=== PATIENT | female | born 1935 | race Caucasian/White ===

== ENCOUNTER 2019-05-17 10:12 | Inpatient (IN) | payer MEDICARE, SELFPAY ==
[2019-05-17] VITALS (26 sets, daily range): BP systolic 134–175; BP diastolic 56–109; PULSE 71–118; RESP 16–30; TEMP 36.2–36.8; O2SAT 67–100; BMI 20.9
--- NOTE | ~2019-05-17 | XR_ITS ---
EXAMINATION: XR chest 1V portable DATE: 05/17/2019 11:08 INDICATION: Shortness of breath TECHNIQUE: frontal view of the chest was obtained. COMPARISON: Chest radiograph dated 07/19/[address] dated 07/23/2018 FINDINGS: Diffuse increased interstitial pattern in the bilateral mid to lower lung zones consistent with mild pulmonary edema superimposed over emphysema. Calcified nodule in the left lower lung zone consistent with old granulomatous disease. No focal airspace consolidation, pleural effusion or pneumothorax. Th e cardiomediastinal silhouette is normal. Atherosclerotic thoracic aorta. Mild thoracic dextroscolios is. Chronic mild T7 compression fracture and L1 burst fracture, the latter better appreciated on prio r CT. IMPRESSION: 1. Mild increased interstitial pattern in the bilateral mid to lower lung zones and favor pulmonary e jammie over pneumonia. 2. Emphysema. Reviewed, dictated and finalized at location A. H PACKER IMPRESSION: 1. Mild increased interstitial pattern in the bilateral mid to lower lung zones and favor pulmonary edema over pneumonia. 2. Emphysema.
--- NOTE | ~2019-05-17 | CT_ITS ---
EXAMINATION: CT brain wo con DATE: 05/17/2019 11:38 INDICATION: Altered mental status. TECHNIQUE: Computed tomography (CT) of the head was performed without intravenous contrast. Sagittal and coronal reconstructions were performed. The mA was adjusted according to patient size. Iterative reconstruction technique was employed. The dose-length product was 605.33 mGy-cm. COMPARISON: head CT dated 06/23/2018 FINDINGS: No acute intracranial hemorrhage, acute infarction or abnormal extra axial fluid collection. Old lacu lyudmila infarct versus prominent perivascular spaces at the right lentiform nucleus and left thalamus. Th ere is extensive scattered white matter hypoattenuation consistent with chronic small vessel ischemic disease. Symmetric prominence of the sulci and ventricles consistent with moderate age-appropriate d iffuse cerebral volume loss. Normal cavum septum lucidum. No mass/mass effect. Intracranial calcified cerebral atherosclerosis is noted. Changes of bilateral intraocular lens replacement. The orbits, p aranasal sinuses and mastoid air cells are normal. IMPRESSION: 1. No acute intracranial process. 2. Small old lacunar infarct versus prominent perivascular space at the right lentiform nucleus and l eft thalamus. 3. Age-related changes including moderate diffuse volume loss and extensive white matter hypoattenuat ion consistent with chronic small vessel ischemic disease. Reviewed, dictated and finalized at location A. CH AND BRACELET MAKER IMPRESSION: 1. No acute intracranial process. 2. Small old lacunar infarct versus prominent perivascular space at the right l entiform nucleus and left thalamus. 3. Age-related changes including moderate diffuse volume loss and extensive whi te matter hypoattenuation consistent with chronic small vessel ischemic disease .
--- NOTE | 2019-05-17 10:12 | ECG_ITS ---
Measurements Intervals [place] Rate: 116 P: [place]: 0 QRS: 66 QRSD: 96 T: 267 QT: 294 QTc: 409 Interpretive Statements ATRIAL FLUTTER/TACHYCARDIA WITH RAPID VENTRICULAR RESPONSE ST-T WAVE ABNORMALITY IN ANTEROLATERAL LEADS- CONSIDER ISCHEMIA BASELINE ARTIFACT- II, III, AVF, V3-V6 ABNORMAL ECG Electronically Signed On 05-17-2019 18:40:02 CIRCLE CUTTING SAW OPERATOR by Jose Benites D.O.
[2019-05-17 10:40] LABS: Basophils Absolute Auto 0.2 K/mm3 (0.0-0.1); Basophils Percent Auto 0.5 % (0.2-1.2); Eosinophils Absolute Auto 0.1 K/mm3 (0-0.3); Eosinophils Percent Auto 0.3 % (0-4.4); Hematocrit 50.2 % (37.0-47.0); Hemoglobin 15.8 g/dL (12.0-15.0); Immature Granulocyte Absolute 0.39 K/mm3 (0.00-0.031); Immature Granulocyte Percent A 1.1 % (0-0.5); Lymphocytes Absolute Auto 1.76 K/mm3 (0.9-3.2); Lymphocytes Percent Auto 5.1 % (18.3-44.2); Mean Corpuscular HGB Conc 31.5 g/dl (32-36); Mean Corpuscular Hemoglobin 29.3 pg (26-34); Mean Corpuscular Volume 93.1 fl (80-100); Monocytes Absolute Auto 1.5 K/mm3 (0.1-0.6); Monocytes Percent Auto 4.5 % (2.6-8.5); Neutrophils Absolute Auto 30.4 K/mm3 (1.3-6.7); Neutrophils Percent Auto 88.5 % (45.5-73.1); Platelet Count Result 436 k/mm3 (150-375); Red Blood Count 5.39 M/mm3 (4.2-5.4); Red Cell Distribution Width 13.7 % (11.5-14.5); White Blood Count 34.4 K/mm3 (4.5-10.0)
[2019-05-17 10:44] LABS: Add Urine Microscopic? YES; Appearance Urine Turbid (Clear); Bacteria Urine 2+ /hpf; Bilirubin Urine Negative (Negative); Blood Urine 1+ (Negative); Color Urine Yellow (Yellow); Glucose Urine UA 2+ mg/dL (Negative); Hyaline Casts Urine 15-19 /lpf; Ketones Urine Negative (Negative); Leukocyte Esterase Ur 3+ LEU/UL (Negative); Nitrate Urine Negative (Negative); Protein Urine 2+ mg/dL (Negative); Specific Grav Ur 1.016 (1.001-1.035); Urobilinogen Urine Negative mg/dL (<2.0); WBC Urine >75 /hpf
[2019-05-17 10:52] LABS: Alanine Aminotransferase 25 U/L (4-35); Albumin Level 4.6 g/dL (3.5-5.1); Alkaline Phosphatase 152 U/L (38-126); Aspartate Amino Transferase 33 U/L (14-36); Bilirubin,Total 0.6 mg/dL (0.2-1.3); Blood Urea Nitrogen 34 mg/dL (7-17); Calcium 9.5 mg/dL (8.4-10.2); Carbon Dioxide 31 mmol/L (22-30); Chloride 98 mmol/L (98-107); Estimated CRCL calculation 33 ml/min; Estimated Glomerular Filt Rate > 60; Glucose 248 mg/dL (65-105); Potassium 3.6 mmol/L (3.4-5.0); Sodium 141 mmol/L (137-145)
--- NOTE | 2019-05-17 11:11 | ED.AMS ---
HPI - Altered Mental Status General Chief Complaint: Altered Mental Status Stated Complaint: ams Time Seen by Provider: 05/17/19 11:04 Source: patient, RN notes reviewed and other (ED nurse) Mode of arrival: EMS Limitations: clinical condition History of Present Illness HPI narrative: Pt is an 83 y/o female presenting to the ED via EMS c/o unresponsive. ED nurse states the pt is a resident of [facility] where the pt became unresponsive earlier today. Per nurse, the pt had one episode of emesis prior to the unresponsive episode which has since resolved. ED nurse states the pt's baseline or PMHx is unknown. Pt reports chest pain and SOB. HPI is limited due to pt's clinical condition. Most information provided by ED nurse. Onset (ago): unknown Associated symptoms: chest pain and shortness of breath Related Data Home Medications Medication Instructions Recorded Confirmed acetaminophen 650 mg PO Q4-6H PRN 05/17/19 apixaban [Eliquis] 2.5 mg PO BID 05/17/19 calcium carbonate-vitamin D3 1 tablet PO DAILY 05/17/19 [Calcium 600 + D(3)] diltiazem HCl [DILT-XR] 240 mg PO DAILY 05/17/19 docusate sodium 100 mg PO DAILY 05/17/19 ferrous sulfate 325 mg PO BID 05/17/19 furosemide 20 mg PO DAILY 05/17/19 metoprolol tartrate 25 mg PO BID 05/17/19 polyethylene glycol 3350 17 g PO DAILY 05/17/19 potassium chloride [Klor-Con 10] 10 meq PO DAILY 05/17/19 umeclidinium-vilanterol [Anoro INHALATION 05/17/19 Ellipta] Allergies Allergy/AdvReac Type Severity Reaction Status Date / Time No Known Allergies Allergy Unverified 05/17/19 10:20 Review of Systems Review of Systems: Narrative: ROS is limited due to pt's clinical condition. All systems reviewed & are unremarkable except as noted in HPI and below Cardiovascular: Cardiovascular: Reports chest pain Respiratory: Respiratory: Reports dyspnea Neurologic: Reports other (Unresponsive (resolved)) [facility] Past Medical History Medical History A-fib Cataracts, bilateral CHF (congestive heart failure) COPD (chronic obstructive pulmonary disease) Dementia Depression Hip fracture History of osteoporosis HLD (hyperlipidemia) HTN (hypertension) Pneumonia Ulcer Surgical History Surgical History History of hip surgery Pins in rt hip Social History Social History Smoking status: Current every day smoker Alcohol intake: never Exam Const: General: acute distress (Moderate) and ill appearing Nutritional Appearance: well nourished Other: Elderly; Frail HENMT: Mouth: Yes lip normal Eyes: Conjunctivae: conjunctivae normal Resp: Effort & Inspection: normal respiratory effort Auscultation: wheezes (Scattered) Cardio: Rate: tachycardic Rhythm: abnormal rhythm irregularly irregular GI: GI Palp: No Tenderness to palpation present (GI) Back/Spine/Pelvis: Other: Full ROM Skin: General skin exam: normal color Other: Warm; Dry Neuro: General: moves all extremities Course Consultations Consultation #1: Discussed case with Hospitalist HOME CARE COORDINATOR Lauren Ortiz. Accepted the pt for admission. Date: 05/17/19 Time: 13:01 Vital Signs Vital signs: Vital Signs Temperature 36.3 C L 05/17/19 10:12 Pulse Rate 118 H 05/17/19 10:12 Respiratory Rate 28 H 05/17/19 10:12 Blood Pressure 175/94 H 05/17/19 10:12 Pulse Oximetry 67 L 05/17/19 10:12 Temperature 36.8 C 05/17/19 15:34 Pulse Rate 76 05/17/19 15:34 Respiratory Rate 16 05/17/19 15:34 Blood Pressure 167/109 H 05/17/19 15:34 Pulse Oximetry 100 05/17/19 15:34 MDM - Altered Mental Status MDM Narrative Medical decision making narrative: Will treat for pneumonia with possible aspiration and UTI. Differential Diagnosis Differential diagnosis: Likely subarachnoid hemorrhage, sepsis and other (Pneumonia, aspiration, UTI, dehydration) Medical Record
[2019-05-17] MEDS: ALBUTEROL SULFATE NEB 2.5 MG/0.5 ML INH 5 MG INHALATION ×2 (11:44→21:25)
[2019-05-17 11:50] LABS: Base Excess ABG 6.4 mEq/l (+/-2.0); Carboxyhemoglobin 0.8 % THb (0-2.0); Fractional Inspired Oxygen 100 %; HCO3 ABG 34.7 mEq/l (22.0-26.0); Methemoglobin ABG 0.4 %THb (0-1.5); Oxygen Content ABG 22.1 %vol (16.0-22.0); Oxygen Saturation ABG 99.5 % (95.0-100.0); Oxyhemoglobin 97.8 % THb (90.0-100.0); PO2 ABG 240.6 mmHg (80.0-100.0); PO2 FiO2 Ratio Arterial Blood 2.41 %; Total Hemoglobin 15.7 g/dL (12.0-18.0); pH ABG 7.343 (7.350-7.450)
[2019-05-17 11:52] LABS: Device NON-REBREATHER MASK; Modified Allen's Test Pass; PCO2 ABG 65.4 mmHg (35.0-45.0); Site Drawn LEFT RADIAL
[2019-05-17 12:17] LABS: Lactic Acid Reflex 2.3 mmol/L (0.7-2.1)
[2019-05-17] MEDS: SODIUM CHLORIDE 0.9% IV 500 ML 999 ML IV CONT (12:40)
[2019-05-17 15:02] LABS: Reflex Lactic Acid Yes or No Add Lactic
[2019-05-17 15:43] LABS: Lactic Acid 2.5 mmol/L (0.7-2.1)
--- NOTE | 2019-05-17 16:47 | PCRCNOTE ---
1400 UPD TX. NOT DONE PAST WINDOW OF ADMIN, SEE NEXT SCHEDULED DOSE.
--- NOTE | 2019-05-17 19:04 | ADMGEN ---
This patient, Cat Pike, was admitted to IMU Room 207-01 at 1504. Patient/family oriented to hospital policies and general routines including ID bracelet, bed and alarms, visiting hours, pain management, procedures, bathroom and other care routines, personal items, smoking policy, room service/diet, and visiting hours. Valuables list has been completed. Information on how to activate the Rapid Response Team has been discussed. Patient/Family are encouraged to report perceived risks to care and to ask questions if they do not understand what they are told or what they should do.
[2019-05-17] MEDS: IPRATROPIUM BR 0.02% INH SOLN 0.5 MG/2.5 ML VIAL INHALATION (21:25)
--- NOTE | 2019-05-17 23:58 | PM.IMHP ---
H&P: HPI History of Present Illness Chief complaint: sepsis/pneumonia/uti Narrative: Cat Pike is a 83 year old female from [facility]. The patient was brought in via EMS with complaints of unresponsiveness. The nursing staff at stated the patient went unresponsive earlier today. Patient had 1 episode of emesis prior to being unresponsive but has resolved since then. She was reporting some chest pain and shortness of breath. Was read as no acute intracranial process. Small old lacunar infarction versus prominent perivascular space at the right 10 a form nucleus and left thalamus. Age-related changes including moderate diffuse volume loss and extensive white matter hypoattenuation consistent with small-vessel ischemic disease. Chest x-ray was read as mild increased interstitial pattern in the bilateral mild to lower lung zones with favor pulmonary edema over pneumonia. Emphysema. Patient was started on Rocephin for UTI. White count was noted to be 34.4. She appears to be dehydrated. She was also given neb treatments and IV fluids. Patient is not answering questions for me at this time. Date of service 05/17/2019 Review of Systems Review of Systems: Narrative: Unable to obtain information patient has a history of dementia. Information obtained from records. All systems reviewed & are unremarkable except as noted in HPI and below Constitutional: Constitutional: Reports as per HPI and Reports no additional constitutional complaints Eyes: Eyes: Reports as per HPI and Reports no additional eye complaints ENT: Reports system reviewed and no additional complaints, except as documented and Reports Normal hearing present Cardiovascular: Cardiovascular: Reports no additional cardiovascular complaints Respiratory: Respiratory: Reports no additional respiratory complaints and Reports no additional respiratory complaints Gastrointestinal: Gastrointestinal: Reports as per HPI and Reports no additional gastrointestinal complaints Musculoskeletal: Musculoskeletal: Reports no additional musculoskeletal complaints Integumentary/Breasts: Skin/Breast: Reports system reviewed and no additional complaints, except as docu and Reports as per HPI Neurologic: Reports system reviewed and no additional complaints, except as documented, Reports as per HPI and Reports Normal hearing present Psychiatric: Psychiatric: Reports no additional psychiatric complaints and Reports as per HPI Endocrine: Endocrine: Reports no additional endocrine complaints Hematologic/Lymphatic: Hematologic/Lymphatic: Reports no additional hematologic/lymphatic complaints Allergic/Immunologic: Allergic/Immunologic: Reports no additional allergic/immunologic complaints [facility] Past Medical History Medical History (Updated 05/18/19 @ 00:11 by Lauren Ortiz NP) A-fib Cataracts, bilateral CHF (congestive heart failure) Diastolic COPD (chronic obstructive pulmonary disease) Dementia Depression Hip fracture History of CVA (cerebrovascular accident) History of osteoporosis History of rhabdomyolysis HLD (hyperlipidemia) HTN (hypertension) Iron deficiency anemia Pneumonia Ulcer Surgical History Surgical History History of hip surgery Pins in rt hip Family History Family History (Updated 05/18/19 @ 00:06 by Lauren Ortiz NP) Father Heart disease Sibling Cerebrovascular accident Social History Social History (Updated 05/18/19 @ 00:07 by Lauren Ortiz NP) Social History: She lives at [facility]. According to the chart she has been a full code per state form. She used to smoke a pack per day for 50 years and quit smoking 6 or 7 years ago. The patient used to live alone she went [place]. No alcohol or illicit drugs Smoking status: Former smoker Tobacco type: cigarettes Smoking end date: 05/17/19 Alcohol intake: never Substance use: never Substance use type: does
[2019-05-18] VITALS (26 sets, daily range): BP systolic 128–172; BP diastolic 75–105; PULSE 56–103; RESP 16–22; TEMP 36.4–37.2; O2SAT 3–100
[2019-05-18] MEDS: METOPROLOL TARTRATE 25 MG TABLET PO ×3 (01:08→17:54)
[2019-05-18] MEDS: APIXABAN 2.5 MG TABLET PO ×3 (01:08→17:56)
[2019-05-18] MEDS: LACTATED RINGERS 1,000 ML 75 ML IV CONT ×2 (01:17→20:55)
[2019-05-18] MEDS: ALBUTEROL SULFATE NEB 2.5 MG/0.5 ML INH 5 MG INHALATION ×4 (02:40→21:08)
[2019-05-18] MEDS: IPRATROPIUM BR 0.02% INH SOLN 0.5 MG/2.5 ML VIAL INHALATION ×4 (02:41→21:08)
[2019-05-18 10:29] LABS: Hematocrit 45.2 % (37.0-47.0); Hemoglobin 14.3 g/dL (12.0-15.0); Mean Corpuscular HGB Conc 31.6 g/dl (32-36); Mean Corpuscular Hemoglobin 29.4 pg (26-34); Mean Corpuscular Volume 92.8 fl (80-100); Mean Platelet Volume 9.7 fl (7.4-10.4); Platelet Count Result 369 k/mm3 (150-375); Red Blood Count 4.87 M/mm3 (4.2-5.4); Red Cell Distribution Width 13.5 % (11.5-14.5); White Blood Count 13.4 K/mm3 (4.5-10.0)
[2019-05-18 10:40] LABS: Lactic Acid 1.9 mmol/L (0.7-2.1)
[2019-05-18 10:42] LABS: Blood Urea Nitrogen 20 mg/dL (7-17); Calcium 9.6 mg/dL (8.4-10.2); Carbon Dioxide 36 mmol/L (22-30); Chloride 99 mmol/L (98-107); Estimated CRCL calculation 35 ml/min; Estimated Glomerular Filt Rate > 60; Glucose 115 mg/dL (65-105); Potassium 4.1 mmol/L (3.4-5.0); Sodium 144 mmol/L (137-145)
--- NOTE | 2019-05-18 11:13 | PM.IMPN ---
Progress Note: A&P Assessment and Plan (1) Sepsis: Qualifiers: Sepsis acute organ dysfunction status: unspecified Sepsis type: sepsis due to unspecified organism Qualified Code(s): A41.9 - Sepsis, unspecified organism Code(s): A41.9 - Sepsis, unspecified organism Status: Acute Assessment and Plan: Result of UTI and aspiration pneumonia. Criteria met on admission. WBC decreased to 13.4 today. Blood and urine cultures pending. Will continue IV Zosyn and IV fluids. Discussed code status with family. Family wishes patient to be DNR. Will transfer to medical floor as stable. (2) Aspiration pneumonia: Qualifiers: Aspiration pneumonia type: due to vomit Laterality: bilateral Lung location: lower lobe of lung Qualified Code(s): J69.0 - Pneumonitis due to inhalation of food and vomit Code(s): J69.0 - Pneumonitis due to inhalation of food and vomit Status: Acute Assessment and Plan: [place] to have aspirated on vomit with O2 saturations dropping and becoming unresponsive. Chest x-ray mild increased interstitial pattern in the bilateral mid to lower lung zones. WBC improved as noted. Continue IV Zosyn and IV fluids. Continue nebulizer treatments. Remains on 1-3 L of oxygen. Will monitor. (3) UTI (urinary tract infection): Qualifiers: Urinary tract infection type: site unspecified Hematuria presence: without hematuria Qualified Code(s): N39.0 - Urinary tract infection, site not specified Code(s): N39.0 - Urinary tract infection, site not specified Status: Acute Assessment and Plan: Urine culture pending. Continue IV Zosyn as noted above. (4) Acute respiratory failure: Qualifiers: Respiratory failure complication: hypoxia Qualified Code(s): J96.01 - Acute respiratory failure with hypoxia Code(s): J96.00 - Acute respiratory failure, unspecified whether with hypoxia or hypercapnia Status: Acute Assessment and Plan: Result of aspiration. Nebulizer treatments and IV antibiotics. (5) A-fib: Qualifiers: Atrial fibrillation type: unspecified Qualified Code(s): I48.91 - Unspecified atrial fibrillation Code(s): I48.91 - Unspecified atrial fibrillation Status: Chronic Assessment and Plan: Telemetry reviewed on 05/18/2019 with patient in sinus rhythm. Will continue metoprolol and Cardizem. Continue Eliquis for anticoagulation. (6) COPD (chronic obstructive pulmonary disease): Qualifiers: COPD type: unspecified COPD Qualified Code(s): J44.9 - Chronic obstructive pulmonary disease, unspecified Code(s): J44.9 - Chronic obstructive pulmonary disease, unspecified Status: Chronic Assessment and Plan: No exacerbation. Respiratory treatments as noted above. (7) HTN (hypertension): Qualifiers: Hypertension type: essential hypertension Qualified Code(s): I10 - Essential (primary) hypertension Code(s): I10 - Essential (primary) hypertension Status: Chronic Assessment and Plan: Blood pressure reviewed on 05/18/2019. Presently stable. Will continue to monitor on metoprolol and diltiazem. (8) CHF (congestive heart failure): Qualifiers: Heart failure type: unspecified Heart failure chronicity: chronic Qualified Code(s): I50.9 - Heart failure, unspecified Code(s): I50.9 - Heart failure, unspecified Status: Chronic Assessment and Plan: No exacerbation. Will continue Lasix and metoprolol. Will monitor. (9) Iron deficiency anemia: Qualifiers: Iron deficiency anemia type: unspecified iron deficiency Qualified Code(s): D50.9 - Iron deficiency anemia, unspecified Code(s): D50.9 - Iron deficiency anemia, unspecified Status: Chronic Assessment and Plan: Known iron deficiency anemia but hemoconcentrated on admission. Hemoglobin better at 14.3 with rehydration.
[2019-05-18] MEDS: FERROUS SULFATE 324 MG TABLET PO ×2 (13:12→17:54)
[2019-05-18] MEDS: POTASSIUM CHLORIDE 10 MEQ TABLET.ER PO (13:12)
--- NOTE | 2019-05-18 18:36 | PC.NURSE ---
This patient, Cat Pike, was received from [IMU] on 05/18/19 at 1525. Personal belongings list checked and signed. Patient/family oriented to unit policies and routines
[2019-05-19] VITALS (11 sets, daily range): BP systolic 101–144; BP diastolic 64–95; PULSE 51–100; RESP 18–20; TEMP 36.7–37.3; O2SAT 93–100
[2019-05-19] MEDS: ALBUTEROL SULFATE NEB 2.5 MG/0.5 ML INH 5 MG INHALATION ×3 (02:23→13:50)
[2019-05-19] MEDS: IPRATROPIUM BR 0.02% INH SOLN 0.5 MG/2.5 ML VIAL INHALATION ×3 (02:23→13:50)
[2019-05-19 06:01] LABS: Blood Urea Nitrogen 16 mg/dL (7-17); Calcium 8.8 mg/dL (8.4-10.2); Carbon Dioxide 32 mmol/L (22-30); Chloride 98 mmol/L (98-107); Estimated CRCL calculation 40 ml/min; Estimated Glomerular Filt Rate > 60; Glucose 89 mg/dL (65-105); Magnesium 1.9 mg/dL (1.6-2.3); Potassium 3.8 mmol/L (3.4-5.0); Sodium 140 mmol/L (137-145)
[2019-05-19 06:02] LABS: Hemoglobin 12.7 g/dL (12.0-15.0); Mean Corpuscular HGB Conc 31.8 g/dl (32-36); Mean Corpuscular Hemoglobin 29.2 pg (26-34); Mean Platelet Volume 9.8 fl (7.4-10.4); Platelet Count Result 350 k/mm3 (150-375); Red Blood Count 4.35 M/mm3 (4.2-5.4); Red Cell Distribution Width 13.3 % (11.5-14.5); White Blood Count 12.5 K/mm3 (4.5-10.0)
[2019-05-19] MEDS: POTASSIUM CHLORIDE 10 MEQ TABLET.ER PO (08:46)
[2019-05-19] MEDS: FUROSEMIDE 20 MG TABLET PO (08:46)
[2019-05-19] MEDS: APIXABAN 2.5 MG TABLET PO ×2 (08:47→16:45)
[2019-05-19] MEDS: METOPROLOL TARTRATE 25 MG TABLET PO ×2 (08:47→16:45)
[2019-05-19] MEDS: DOCUSATE SODIUM 100 MG CAPSULE PO (08:47)
[2019-05-19] MEDS: FERROUS SULFATE 324 MG TABLET PO ×2 (08:47→16:45)
[2019-05-19] MEDS: LACTATED RINGERS 1,000 ML 75 ML IV CONT (13:25)
--- NOTE | 2019-05-19 16:00 | PM.IMPN ---
Progress Note: A&P Assessment and Plan (1) Sepsis: Qualifiers: Sepsis acute organ dysfunction status: unspecified Sepsis type: sepsis due to unspecified organism Qualified Code(s): A41.9 - Sepsis, unspecified organism Code(s): A41.9 - Sepsis, unspecified organism Status: Acute Assessment and Plan: Result of UTI and aspiration pneumonia. Criteria met on admission. WBC decreased to 12.5 today. Blood cultures negative. Urine culture with alpha hemolytic Streptococcus and most likely contaminant but on antibiotics for pneumonia. Has been on IV Zosyn here. Will discontinue IV fluids as patient improved. Patient is DNR. Patient appears back to baseline. Spoke with patient daughter, Richard Pike, by will discharge back to [place] today. (2) Aspiration pneumonia: Qualifiers: Aspiration pneumonia type: due to vomit Laterality: bilateral Lung location: lower lobe of lung Qualified Code(s): J69.0 - Pneumonitis due to inhalation of food and vomit Code(s): J69.0 - Pneumonitis due to inhalation of food and vomit Status: Acute Assessment and Plan: [place] to have aspirated on vomit with O2 saturations dropping and becoming unresponsive. Chest x-ray mild increased interstitial pattern in the bilateral mid to lower lung zones. WBC improved as noted. Currently on IV Zosyn and will discharge on oral Augmentin. Not on oxygen at time of my exam. May continue nebulizer at nursing facility. (3) UTI (urinary tract infection): Qualifiers: Hematuria presence: without hematuria Urinary tract infection type: site unspecified Qualified Code(s): N39.0 - Urinary tract infection, site not specified Code(s): N39.0 - Urinary tract infection, site not specified Status: Acute Assessment and Plan: Urine culture as noted above. Will be on oral Augmentin. (4) Acute respiratory failure: Qualifiers: Respiratory failure complication: hypoxia Qualified Code(s): J96.01 - Acute respiratory failure with hypoxia Code(s): J96.00 - Acute respiratory failure, unspecified whether with hypoxia or hypercapnia Status: Acute Assessment and Plan: Result of aspiration. On room air presently. Continue treatment of pneumonia as noted above. (5) A-fib: Qualifiers: Atrial fibrillation type: unspecified Qualified Code(s): I48.91 - Unspecified atrial fibrillation Code(s): I48.91 - Unspecified atrial fibrillation Status: Chronic Assessment and Plan: In sinus rhythm. Will continue metoprolol and Cardizem. Continue Eliquis for anticoagulation. (6) COPD (chronic obstructive pulmonary disease): Qualifiers: COPD type: unspecified COPD Qualified Code(s): J44.9 - Chronic obstructive pulmonary disease, unspecified Code(s): J44.9 - Chronic obstructive pulmonary disease, unspecified Status: Chronic Assessment and Plan: No exacerbation. Respiratory treatments as noted above. (7) HTN (hypertension): Qualifiers: Hypertension type: essential hypertension Qualified Code(s): I10 - Essential (primary) hypertension Code(s): I10 - Essential (primary) hypertension Status: Chronic Assessment and Plan: Blood pressure reviewed on 05/19/2019 and stable. Will continue metoprolol and diltiazem. (8) CHF (congestive heart failure): Qualifiers: Heart failure chronicity: chronic Heart failure type: unspecified Qualified Code(s): I50.9 - Heart failure, unspecified Code(s): I50.9 - Heart failure, unspecified Status: Chronic Assessment and Plan: Stable. No exacerbation. Will continue Lasix and metoprolol. Will monitor. (9) Iron deficiency anemia: Qualifiers: Iron deficiency anemia type: unspecified iron deficiency Qualified Code(s): D50.9 - Iron deficiency anemia, unspecified Code(s): D50.9 - Iron deficiency anemia, uns
--- NOTE | 2019-05-19 21:07 | PM.DS ---
DS: Diagnosis Admitting Diagnosis Admitting Diagnosis: Pneumonitis due to inhalation of food and vomit Discharge Diagnosis (1) Sepsis: Qualifiers: Sepsis acute organ dysfunction status: unspecified Sepsis type: sepsis due to unspecified organism Qualified Code(s): A41.9 - Sepsis, unspecified organism Code(s): A41.9 - Sepsis, unspecified organism Status: Acute (2) Aspiration pneumonia: Qualifiers: Aspiration pneumonia type: due to vomit Laterality: bilateral Lung location: lower lobe of lung Qualified Code(s): J69.0 - Pneumonitis due to inhalation of food and vomit Code(s): J69.0 - Pneumonitis due to inhalation of food and vomit Status: Acute (3) UTI (urinary tract infection): Qualifiers: Hematuria presence: without hematuria Urinary tract infection type: site unspecified Qualified Code(s): N39.0 - Urinary tract infection, site not specified Code(s): N39.0 - Urinary tract infection, site not specified Status: Acute (4) Acute respiratory failure: Qualifiers: Respiratory failure complication: hypoxia Qualified Code(s): J96.01 - Acute respiratory failure with hypoxia Code(s): J96.00 - Acute respiratory failure, unspecified whether with hypoxia or hypercapnia Status: Acute (5) A-fib: Qualifiers: Atrial fibrillation type: unspecified Qualified Code(s): I48.91 - Unspecified atrial fibrillation Code(s): I48.91 - Unspecified atrial fibrillation Status: Chronic (6) COPD (chronic obstructive pulmonary disease): Qualifiers: COPD type: unspecified COPD Qualified Code(s): J44.9 - Chronic obstructive pulmonary disease, unspecified Code(s): J44.9 - Chronic obstructive pulmonary disease, unspecified Status: Chronic (7) HTN (hypertension): Qualifiers: Hypertension type: essential hypertension Qualified Code(s): I10 - Essential (primary) hypertension Code(s): I10 - Essential (primary) hypertension Status: Chronic (8) CHF (congestive heart failure): Qualifiers: Heart failure chronicity: chronic Heart failure type: unspecified Qualified Code(s): I50.9 - Heart failure, unspecified Code(s): I50.9 - Heart failure, unspecified Status: Chronic (9) Iron deficiency anemia: Qualifiers: Iron deficiency anemia type: unspecified iron deficiency Qualified Code(s): D50.9 - Iron deficiency anemia, unspecified Code(s): D50.9 - Iron deficiency anemia, unspecified Status: Chronic (10) Depression: Qualifiers: Depression Type: unspecified Qualified Code(s): F32.9 - Major depressive disorder, single episode, unspecified Code(s): F32.9 - Major depressive disorder, single episode, unspecified Status: Chronic DS: Summary Hospital Course Reason for hospitalization: Unresponsive. Hospital Course: Date of Service of Discharge: May 19, 2019. History of Present Illness: The patient is a 83 year old female with hypertension, hyperlipidemia, atrial fibrillation, dementia, CHF, COPD, and chronic anemia residing at [facility] who was brought in via EMS with complaints of unresponsiveness. Per her record, the nursing staff at [facility] stated the patient went unresponsive earlier in the day prior to presentation. She was noted to have 11 episode of emesis prior to becoming unresponsive. She was also reporting some chest pain and shortness of breath. No recent fever, chills, or diarrhea. In the emergency room, evaluation revealed findings consistent with sepsis, UTI and aspiration pneumonia. She was thus admitted for further evaluation and treatment. Course in Hospital: She was admitted to the IMU with significantly elevated WBC at 34,000 and started on IV fluids, IV antibitotics and nebulizer treatments with supplemental oxygen by nasal cannula. By the morning after admission, WBC had significa
== END 2019-05-19 18:25 | DRG 871 ==
LOC: ANHED 13:11 → ANHIMU 16:58 → ANH3MEDSUR 05-19 07:15 → ANHIMU 05-21 13:46
PROVIDERS: Hospitalist; Admitting Provider Internal Medicine; Emergency Provider Emergency Medicine; Visit Provider Internal Medicine
DX: A41.9 Sepsis, unspecified organism (principal); J69.0 Pneumonitis due to inhalation of food and vomit; J96.01 Acute respiratory failure with hypoxia; N39.0 Urinary tract infection, site not specified; J44.9 Chronic obstructive pulmonary disease, unspecified; D50.9 Iron deficiency anemia, unspecified; F32.9 Major depressive disorder, single episode, unspecified; E78.5 Hyperlipidemia, unspecified; I50.9 Heart failure, unspecified; I48.91 Unspecified atrial fibrillation
CPT/HCPCS: 36415; 36600; 51701; 70450; 71045; 80048; 80053; 81001; 82375; 82805; 83050; 83605; 83735; 85025; 85027; 87040; 87077; 87086; 87088; 93005; 94640; 96365; 96366; 99285; A9270; J0696; J2543; J7040; J7120

== ENCOUNTER 2019-06-24 14:06 | Inpatient (IN) | payer MEDICARE, SELFPAY ==
[2019-06-24] VITALS (17 sets, daily range): BP systolic 91–156; BP diastolic 46–137; PULSE 73–103; RESP 16–33; TEMP 36.3–36.8; O2SAT 80–100; BMI 13.4
--- NOTE | ~2019-06-24 | XR_ITS ---
XR chest 1V portable 06/24/2019 14:23 Indication: Shortness of breath Procedure: AP portable chest Comparison: 07/05/2018 Findings: Borderline heart size. There is atherosclerosis of the aorta. No focal air space disease, p ulmonary edema, pleural effusion or suspected pneumothorax. The lungs are hyperinflated which is cons istent with, but not diagnostic of chronic obstructive pulmonary disease. Impression: 1: No acute cardiopulmonary disease. Reviewed, dictated and finalized at location A. Impression: 1: No acute cardiopulmonary disease.
--- NOTE | 2019-06-24 14:12 | ED.SOB ---
HPI - SOB/Dyspnea General Chief Complaint: Shortness of Breath/Dyspnea Stated Complaint: DIFFICULTY BREATHING/AMS Time Seen by Provider: 06/24/19 14:14 Source: patient, EMS and RN notes reviewed Mode of arrival: EMS Limitations: clinical condition History of Present Illness HPI Narrative: A 83 y/o female presents to the ED via EMS from [facility] with worsening, severe, SOB. [facility] was [facility], had crackles, decreased LOC, and AMS. When EMS arrived the pt was at 53% on RA, so they placed her on 15L NRB and when the pt arrived she was at 83%. MD elicited complaint: shortness of breath Pertinent past history: COPD, congestive heart failure and pneumonia Onset (ago): unknown Timing: progressively worsening Severity: severe Known history of: COPD and congestive heart failure Associated symptoms: other (decreased LOC and AMS) Treatment prior to arrival: oxygen Related Data Home oxygen amount: other (15L NRB) Home Medications Medication Instructions Recorded Confirmed Anoro Ellipta 1 inh INHALATION DAILY 05/17/19 06/24/19 Eliquis 2.5 mg PO BID 05/17/19 06/24/19 acetaminophen 650 mg PO Q4-6H PRN 05/17/19 06/24/19 calcium carbonate-vitamin D3 1 tablet PO DAILY 05/17/19 06/24/19 [Calcium 600 + D(3)] diltiazem HCl [DILT-XR] 240 mg PO DAILY 05/17/19 06/24/19 docusate sodium 100 mg PO DAILY 05/17/19 06/24/19 ferrous sulfate 325 mg PO BID 05/17/19 06/24/19 furosemide 20 mg PO DAILY 05/17/19 06/24/19 metoprolol tartrate 25 mg PO BID 05/17/19 06/24/19 polyethylene glycol 3350 17 g PO PRN PRN 05/17/19 06/24/19 potassium chloride [Klor-Con 10] 10 meq PO DAILY 06/24/19 06/24/19 Allergies Allergy/AdvReac Type Severity Reaction Status Date / Time No Known Allergies Allergy Verified 06/24/19 14:22 [facility] Past Medical History Medical History (Updated 06/24/19 @ 22:21 by Edel Walker PA-C) COPD (chronic obstructive pulmonary disease) Dementia Depression Diastolic congestive heart failure History of CVA (cerebrovascular accident) History of rhabdomyolysis HLD (hyperlipidemia) HTN (hypertension) Iron deficiency anemia Osteoporosis Paroxysmal atrial fibrillation Ulcer Surgical History Surgical History History of hip surgery Pins in rt hip Family History Family History Father Heart disease Sibling Cerebrovascular accident Social History Social History (Updated 06/24/19 @ 22:11 by Edel Walker PA-C) Social History: She lives at [facility]. She is a DNR/DNI. Her daughter, Danielle, as healthcare power of workers compensation defense attorney. She used to smoke a pack per day for 50 years and quit smoking 6 or 7 years ago. No alcohol or illicit drugs Smoking status: Former smoker Tobacco type: cigarettes Smoking end date: 05/17/19 Alcohol intake: never Substance use: never Substance use type: does not use Gender identity (if verbalized by the patient): Female Spiritual care concerns: No Agree to blood products: Yes Exam Narrative: Exam Narrative: General appearance: Malnourished, labored breathing Skin: Normal color Head: Normocephalic, nontraumatic Eyes: Clear conjunctiva ENT: Oropharynx normal, ears normal, nose normal Neck: Supple, nontender Chest and respiratory: Tachypnea, diminution of air entry bilaterally, no rhonchi or wheezing Heart: Regular rate/rhythm Abdomen: Soft, nontender, no organomegaly, quiet bowel sounds Vascular: Normal peripheral pulses, normal capillary refill. Neurologic: Alert and oriented to her name only Course Course Emergency Course: Improving Vital S
--- NOTE | 2019-06-24 14:19 | ECG_ITS ---
Measurements Intervals [place] Rate: 87 P: 92 ID: [id number] QRS: 86 QRSD: 101 T: 263 QT: 338 QTc: 409 Interpretive Statements SINUS RHYTHM FREQUENT ATRIAL PREMATURE COMPLEXES MINIMAL Q WAVES- INF/LAT LEADS ST-T WAVE ABNORMALITY IN INF/LAT LEADS- CONSIDER ISCHEMIA BASELINE ARTIFACT- I, II, III, AVR, AVL, AVF, V1-V6 ABNORMAL ECG Electronically Signed On 06-24-2019 17:53:22 CDT by Jose Benites D.O.
[2019-06-24] MEDS: ALBUTEROL SULFATE NEB 2.5 MG/0.5 ML INH 5 MG INHALATION (14:26)
[2019-06-24] MEDS: IPRATROPIUM BR 0.02% INH SOLN 0.5 MG/2.5 ML VIAL INHALATION (14:26)
[2019-06-24 14:38] LABS: Hematocrit 51.6 % (37.0-47.0); Hemoglobin 15.8 g/dL (12.0-15.0); Mean Corpuscular HGB Conc 30.6 g/dl (32-36); Mean Corpuscular Hemoglobin 28.8 pg (26-34); Mean Corpuscular Volume 94.2 fl (80-100); Mean Platelet Volume 11.3 fl (7.4-10.4); Platelet Count Result 382 k/mm3 (150-375); Red Blood Count 5.48 M/mm3 (4.2-5.4); Red Cell Distribution Width 14.3 % (11.5-14.5); White Blood Count 13.3 K/mm3 (4.5-10.0)
[2019-06-24 14:40] LABS: Fractional Inspired Oxygen 100 %; HCO3 ABG 26.8 mEq/l (22.0-26.0); Oxygen Content ABG 23.4 %vol (16.0-22.0); Oxygen Saturation ABG 99.8 % (95.0-100.0); PCO2 ABG 56.9 mmHg (35.0-45.0); PO2 ABG 463.1 mmHg (80.0-100.0); PO2 FiO2 Ratio Arterial Blood 4.63 %; Total Hemoglobin 16.1 g/dL (12.0-18.0); pH ABG 7.291 (7.350-7.450)
[2019-06-24 14:42] LABS: Device NON-INVASIVE VENT; Modified Allen's Test Pass; Site Drawn RIGHT RADIAL
[2019-06-24 14:43] LABS: Non-Invasive Expiratory Pressure 6 CMH2O; Non-Invasive Inspiratory Pressure 12 CMH2O; Non-Invasive Vent Rate 16 /MIN
[2019-06-24 14:47] LABS: Band Neutrophils Percent 3 % (0-6); Lymphocytes Absolute Manual 0.53 K/mm3 (1.1-4.5); Monocytes Absolute Manual 1.19 K/mm3 (0.1-0.90); Monocytes Percent Manual 9 % (3-9); Neutrophils Absolute Manual 11.57 K/mm3 (1.7-7.2); Neutrophils Percent Manual 84 % (46-73); Total Cells Counted 100
[2019-06-24 14:47] LABS: INR 1.3; Partial Thromboplastin Time 28.3 SECONDS (22.3-36.8); Prothrombin Time 15.8 Seconds (11.1-14.7)
[2019-06-24 14:49] LABS: Platelet Estimate Adequate (Adequate)
[2019-06-24 14:52] LABS: Blood Urea Nitrogen 112 mg/dL (7-17); Calcium 9.4 mg/dL (8.4-10.2); Carbon Dioxide 34 mmol/L (22-30); Chloride 102 mmol/L (98-107); Estimated Glomerular Filt Rate 24; Glucose 204 mg/dL (65-105); Potassium 4.4 mmol/L (3.4-5.0); Sodium 145 mmol/L (137-145)
[2019-06-24 14:56] LABS: Magnesium 2.9 mg/dL (1.6-2.3)
[2019-06-24 15:07] LABS: NT Pro B Type Natriuretic Pept 2740 PG/ML (5-100); Troponin I 0.087 ng/mL (0.000-0.034)
[2019-06-24 15:10] LABS: Add Urine Microscopic? YES; Amorphous Sediment Urine Few; Appearance Urine Cloudy (Clear); Bacteria Urine Trace /hpf; Bilirubin Urine Negative (Negative); Blood Urine Negative (Negative); Color Urine Yellow (Yellow); Glucose Urine UA Negative (Negative); Hyaline Casts Urine 20-29 /lpf; Ketones Urine Negative (Negative); Leukocyte Esterase Ur Negative LEU/UL (Negative); Mucus Urine Rare /lpf; Nitrate Urine Negative (Negative); Protein Urine 1+ mg/dL (Negative); RBC Urine 0-2 /hpf (0-2); Specific Grav Ur 1.016 (1.001-1.035); Squamous Epithelial Cell Urine Few /hpf (Few); WBC Urine 0-3 /hpf
--- NOTE | 2019-06-24 15:17 | PC.NURSE ---
called phlebotomy to redraw pt. @151 due to being rejected. phlebotomy will be up in ed to redraw when he is available.
[2019-06-24 15:21] LABS: CRP 20.9 mg/dL (<1.0)
[2019-06-24] MEDS: MORPHINE SULFATE 2 MG/ML INJ IV PUSH ×2 (15:42→21:07)
[2019-06-24] MEDS: ONDANSETRON INJ 4 MG/2 ML VIAL IV PUSH (15:47)
--- NOTE | 2019-06-24 17:17 | ADMGEN ---
This patient, Cat Pike, was admitted to IMU Room 231-01. Patient/family oriented to hospital policies and general routines including ID bracelet, bed and alarms, visiting hours, pain management, procedures, bathroom and other care routines, personal items, smoking policy, room service/diet, and visiting hours. Valuables list has been completed. Information on how to activate the Rapid Response Team has been discussed. Patient/Family are encouraged to report perceived risks to care and to ask questions if they do not understand what they are told or what they should do.
--- NOTE | 2019-06-24 17:29 | PC.NURSE ---
upon arrival from ED pt restraints were removed before admission and order was discontinued.
[2019-06-24 17:56] LABS: Lactic Acid Reflex 2.3 mmol/L (0.7-2.1)
[2019-06-24 18:14] LABS: Troponin I 0.091 ng/mL (0.000-0.034)
[2019-06-24 18:22] LABS: Alveolar/Arterial O2 Gradient 212.2 mmHg; Base Excess ABG 0.5 mEq/l (+/-2.0); Carboxyhemoglobin 0.5 % THb (0-2.0); Fractional Inspired Oxygen 60 %; HCO3 ABG 31.2 mEq/l (22.0-26.0); Methemoglobin ABG 0.4 %THb (0-1.5); Oxygen Content ABG 21.8 %vol (16.0-22.0); Oxygen Saturation ABG 97.8 % (95.0-100.0); Oxyhemoglobin 96.3 % THb (90.0-100.0); PO2 ABG 128.5 mmHg (80.0-100.0); PO2 FiO2 Ratio Arterial Blood 2.14 %; Reduced Hemoglobin 2.8 %THb (0-5.0)
[2019-06-24 18:23] LABS: pH ABG 7.213 (7.350-7.450)
[2019-06-24 18:24] LABS: Device HIGH FLOW NASAL CANN; Modified Allen's Test Pass; PCO2 ABG 79.2 mmHg (35.0-45.0); Site Drawn RIGHT RADIAL
--- NOTE | 2019-06-24 19:15 | PM.IMHP ---
H&P: HPI History of Present Illness Chief complaint: Shortness of breath and altered mental status. Narrative: Cat Pike is an 83-year-old female with COPD, congestive heart failure, atrial fibrillation, hypertension, and dementia who presented to the emergency department earlier this afternoon via EMS from home with for evaluation of shortness of breath and altered mental status. At the time my evaluation, she is alert but not responding and as such all of this medical history is obtained via a review of her electronic medical records as well as discussions with her daughter, Danielle, via phone. The patient is known to the hospitalist service as she was admitted to May 07, 2019 after presenting to the emergency department unresponsive. She was found to be septic and was treated for aspiration pneumonia and urinary tract infection. She was able to be discharged back to [place] on May 19, and Danielle indicates to me that her mother ?has not been the same since.? With further questioning, the patient has been increasingly confused, less responsive, and seems to have labored breathing a majority of the time. She is not communicating much and her oral intake has decreased. When EMS arrived on the scene, the patient's SpO2 was reportedly 53% on room air and she was placed on 15 liters per non-rebreather mask. On arrival to the emergency department her SpO2 was 83%. She was placed on BiPAP due to respiratory acidosis on her arterial blood gas. She had a difficult time tolerating the BiPAP, and was placed in soft restraints and given morphine as she was continuously pulling at the mask. She continues to be restless and is not tolerating the BiPAP. I have spoken with Danielle, and as the patient is a DNR/DNI, she has elected for comfort measures. Review of Systems Review of Systems: Narrative: Unobtainable given the patient's current clinical condition as detailed above. [facility] Past Medical History Medical History (Updated 06/24/19 @ 22:21 by Edel Walker PA-C) COPD (chronic obstructive pulmonary disease) Dementia Depression Diastolic congestive heart failure History of CVA (cerebrovascular accident) History of rhabdomyolysis HLD (hyperlipidemia) HTN (hypertension) Iron deficiency anemia Osteoporosis Paroxysmal atrial fibrillation Ulcer Surgical History Surgical History History of hip surgery Pins in rt hip Family History Family History Father Heart disease Sibling Cerebrovascular accident Social History Social History (Updated 06/24/19 @ 22:11 by Edel Walker PA-C) Social History: She lives at [facility]. She is a DNR/DNI. Her daughter, Danielle, as healthcare power of teacher elementary school. She used to smoke a pack per day for 50 years and quit smoking 6 or 7 years ago. No alcohol or illicit drugs Smoking status: Former smoker Tobacco type: cigarettes Smoking end date: 05/17/19 Alcohol intake: never Substance use: never Substance use type: does not use Gender identity (if verbalized by the patient): Female Spiritual care concerns: No Agree to blood products: Yes Meds Home Medications and Allergies Home Medications Medication Instructions Recorded Confirmed Type Anoro Ellipta 1 inh INHALATION DAILY 05/17/19 06/24/19 History Eliquis 2.5 mg PO BID 05/17/19 06/24/19 History acetaminophen 650 mg PO Q4-6H PRN 05/17/19 06/24/19 History calcium carbonate-vitamin D3 1 tablet PO DAILY 05/17/19 06/24/19 History [Calcium 600 + D(3)] diltiazem HCl [DILT-XR] 240 mg PO DAILY 05/17/19 06/24/19 History docusate sodium 100 mg PO DAILY 05/17/19 06/24/19 History ferrous sulfate 325 mg PO BID 05/17/19 06/24/19 History furosemide 20 mg PO DAILY 05/17/19 06/24/19 History metoprolol tartrate 25 mg PO BID 05/17/19 06/24/19 History polyethylene glycol 3350 17 g PO PRN PRN 05/17/19 06/24/19 Hi
[2019-06-24 20:40] LABS: Reflex Lactic Acid Yes or No Add Lactic
[2019-06-24] MEDS: LORAZEPAM INJ 2 MG/ML VIAL 1 MG IV PUSH (21:08)
[2019-06-25] VITALS (8 sets, daily range): BP systolic 114–130; BP diastolic 43–52; PULSE 79–91; RESP 20–28; TEMP 36.4–36.6; O2SAT 93–100; BMI 14.8
[2019-06-25] MEDS: LORAZEPAM INJ 2 MG/ML VIAL 1 MG IV PUSH (05:32)
[2019-06-25] MEDS: MORPHINE SULFATE 2 MG/ML INJ IV PUSH ×2 (05:32→15:03)
--- NOTE | 2019-06-25 12:02 | PM.IMPN ---
Progress Note: A&P Assessment and Plan (1) Acute respiratory failure with hypoxia and hypercarbia: Code(s): J96.01 - Acute respiratory failure with hypoxia; J96.02 - Acute respiratory failure with hypercapnia Status: Acute Assessment and Plan: Thought all secondary to respiratory failure and COPD exacerbation.. No infiltrate seen on chest x-ray (2) Acute kidney injury: Code(s): N17.9 - Acute kidney failure, unspecified Status: Acute Assessment and Plan: Creatinine had gone up to 2.0 with high BUN probably all pre renal azotemia. Hydrated (3) Dehydration: Code(s): E86.0 - Dehydration Status: Acute (4) Failure to thrive: Status: Acute Assessment and Plan: Has had a steady down hill course and family realizes that and are requesting comfort care (5) Paroxysmal atrial fibrillation: Code(s): I48.0 - Paroxysmal atrial fibrillation Status: Acute Assessment and Plan: No change (6) Diastolic congestive heart failure: Code(s): I50.30 - Unspecified diastolic (congestive) heart failure Status: Acute Assessment and Plan: Appears fairly euvolemic to dehydrated at present time (7) COPD (chronic obstructive pulmonary disease): Qualifiers: COPD type: unspecified COPD Qualified Code(s): J44.9 - Chronic obstructive pulmonary disease, unspecified Code(s): J44.9 - Chronic obstructive pulmonary disease, unspecified Status: Chronic Assessment and Plan: Exacerbation and have added updrafts Subjective Date/time seen: 06/25/19 12:02 Interval history: Date of visit 06/24. 83-year-old white female with COPD and chronic respiratory failure presented acute respiratory distress and renal failure. Long history of dementia and confusion and would not leave BiPAP on. Family decided on comfort care and she seems comfortable this a.m. Exam Narrative: Exam Narrative: Blood pressure 126/48 pulse is 84 saturating 100% 10 L high-flow respirations 10 per minute General: Acutely ill-appearing frail, thin, elderly female lying in bed. . HEENT: Pupils are 4 millimeters and are sluggishly reactive bilaterally. She does not track with her eyes. Conjunctiva mildly injected. Oral mucosa is dry. Oropharynx not visualized as patient would not open her mouth. Neck: Supple. Respiratory: breathing has slowed since admission with shallow breaths. Lungs are significantly diminished throughout due to poor inspiratory effort. Diffuse expiratory wheezing noted. Cardiovascular: Regular rate and rhythm with S1-S2. Gastrointestinal: Abdomen is soft, nontender, and nondistended with positive bowel sounds. Skin: Warm and dry. Poor skin turgor. . Extremities: No cyanosis, clubbing, or edema. Radial and pedal pulses intact and faint Neurological: Eyes are open but she does not follow voice, answer questions, or follow commands. Was restless but calm now. Cranial nerves 2-12 are grossly intact. Psychiatric: . She is confused and unable to follow commands or answer questions. Objective Data Vital Signs Vital Signs: Vital Signs - 24 hr 06/24/19 14:09 06/24/19 14:10 06/24/19 14:13 Temperature 36.3 C L Pulse Rate 96 103 H 103 H Respiratory Rate 30 H 26 H 33 H Blood Pressure 102/46 L 102/46 L Pulse Oximetry 83 L 06/24/19 14:15 06/24/19 14:17 06/24/19 14:18 Temperature Pulse Rate 94 90 Respiratory Rate 28 H Blood Pressure Pulse Oximetry 83 L 06/24/19 14:22 06/24/19 14:30 06/24/19 14:45 Temperature Pulse Rate 85 98 92 Respiratory Rate 25 H 25 H 33 H Blood Pressure 156/137 H Pulse Oximetry 80 L 86 L 06/24/19 15:43 06/24/19 16:00 06/24/19 16:19 Temperature Pulse Rate 80 76 Respiratory Rate 26 H 28 H 21 H Blood Pressure 104/91 H 114/74 Pulse Oximetry 95 94 06/24/19 17:27 06/24/19 18:00 06/24/19 19:52 Temperature 36.8 C 36.6 C Pulse Rate 74 81 86 Respiratory Rate 16 22 H Blood Pres
--- NOTE | 2019-06-25 15:45 | PM.DDS ---
Discharge Sum: Prov Provider Primary care physician: Kanchan Ramirez RN Admitting provider: Ami Suarez MD Consults: 06/24/19 Care Coordination Consult Routine Comment: Reason for Consult:: Hospice Referral Discharge Sum: Diag Contributing Factors (1) Acute respiratory failure with hypoxia and hypercarbia: (2) Acute kidney injury: (3) Dehydration: (4) Failure to thrive: (5) Paroxysmal atrial fibrillation: (6) Diastolic congestive heart failure: (7) COPD (chronic obstructive pulmonary disease): Discharge Sum: Summary Date and Time Date of admission: 06/24/19 15:39 Summary Details: 83-year-old white female with COPD and chronic respiratory failure with dementia admitted from home with increasing shortness of breath. Chest x-ray revealed no infiltrate and blood gas with 7.2 pCO2 of 79 with PO2 of 128. Patient was agitated would not keep her BiPAP or oxygen on. She was dehydrated with acute renal failure also. She was a DNR DNI and after discussion with the family it was decided they would proceed to comfort care. She had a steady continual downhill course despite updraft treatments and hydration. Troponins were flat compatible with her COPD exacerbation ,she early afternoon on the 25th Cause of COPD exacerbation and respiratory failure Additional Data Attending physician: Ami Suarez MD
--- NOTE | 2019-06-25 15:56 | PC.NURSE ---
TOD 1535
== END 2019-06-25 15:30 | disposition expired | DRG 189 ==
LOC: ANHED 15:42 → ANHIMU 17:31
PROVIDERS: Physician Assistant; Admitting Provider Hospitalist; Emergency Provider Emergency Medicine; Visit Provider Internal Medicine
DX: J96.01 Acute respiratory failure with hypoxia (principal); I50.32 Chronic diastolic (congestive) heart failure; N17.9 Acute kidney failure, unspecified; Z68.1 Body mass index [BMI] 19.9 or less, adult; J44.1 Chronic obstructive pulmonary disease with (acute) exacerbation; I50.9 Heart failure, unspecified; F03.90 Unspecified dementia, unspecified severity, without behavioral disturbance, psychotic disturbance, mood disturbance, and anxiety; F32.9 Major depressive disorder, single episode, unspecified; Z86.73 Personal history of transient ischemic attack (TIA), and cerebral infarction without residual deficits; E78.5 Hyperlipidemia, unspecified; I10 Essential (primary) hypertension; M81.0 Age-related osteoporosis without current pathological fracture; I48.0 Paroxysmal atrial fibrillation; Z87.891 Personal history of nicotine dependence; J96.02 Acute respiratory failure with hypercapnia; E86.0 Dehydration; R62.7 Adult failure to thrive; Z66 Do not resuscitate
CPT/HCPCS: 36415; 36600; 51701; 71045; 80048; 81001; 82375; 82805; 83050; 83605; 83735; 83880; 84484; 85025; 85610; 85730; 86140; 87040; 87804; 93005; 94640; 96374; 96375; 99291; J2060; J2270; J2405